=== PATIENT | female | born 1975 | race Caucasian/White ===

== ENCOUNTER 2019-03-18 12:31 | Emergency (ER) | payer OTHER ==
[~2019-03-18] VITALS: Ht 149.9 cm; Wt 73.0 kg
[~2019-03-18 12:31] MED LIST: COLACE100 MG PO; KEFLEX500 MG PO; NORCO1 TA2 PO; TORADOL10 MG PO
[2019-03-18 13:21] VITALS: Ht 149.9 cm; Wt 73.0 kg
[2019-03-18 15:02] LABS: microscopic required? NO
[2019-03-18 15:21] LABS: urine erythrocyte NEGATIVE (NEGATIVE)
[2019-03-18 15:31] LABS: BASOPHIL % 0.4 % (0-2); PLATELET COUNT 251 x10^3mcL (130-400); RED CELL DISTRIBUTION WIDTH 13.2 % (11.5-14.5)
[2019-03-18 16:00] LABS: CHLORIDE SERUM 104 mmol/L (98-107); CREATININE SERUM 0.6 mg/dL (0.6-1.0); GFR1 > 60 mL/min; GLUCOSE SERUM 87 mg/dL (74-106); SODIUM SERUM 138 mmol/L (136-145)
[2019-03-18 16:04] LABS: ALBUMIN 4.2 g/dL (3.4-5.0); ALKALINE PHOSPHATASE 84 U/L (46-116); ALT/SGPT 41 U/L (14-59); AST/SGOT 15 U/L (15-37); BILIRUBIN TOTAL 0.28 mg/dL (0.20-1.00); LIPASE 138 IU/L (73-393)
[2019-03-18 19:40] VITALS: BP 116/71
== END 2019-03-18 19:40 | disposition home or self-care (01) ==
LOC: ED 12:31
PROVIDERS: Emergency Medicine
DX: R10.30 Lower abdominal pain, unspecified (principal); M54.9 Dorsalgia, unspecified; R11.0 Nausea; Z90.710 Acquired absence of both cervix and uterus; Z90.89 Acquired absence of other organs; Z90.49 Acquired absence of other specified parts of digestive tract
CPT/HCPCS: J1885; J2405